=== PATIENT | female | born 1985 | race Caucasian/White ===

== ENCOUNTER 2016-08-16 10:23 | Emergency (ER) | payer OTHER ==
[~2016-08-16] VITALS: Ht 160 cm; Wt 54.8 kg
[~2016-08-16 10:23] MED LIST: ULTRAM50 MG PO; ZANTAC300 MG PO
[2016-08-16 10:42] VITALS: BP 108/71
[2016-08-16] MEDS ORDERED: CORTISPORI200 DROPS/ RIGHT EAR (11:14)
[2016-08-16] MEDS ORDERED: AZITHROMYCIN250 MG1 PO (11:14)
[2016-08-16] MEDS ORDERED: PAROXETINE HCL10 MG PO (11:15)
[2016-08-16] MEDS ORDERED: TYLENOL WITH C1 EACH PO (11:26)
[2016-08-16] MEDS ORDERED: CIPRO500 MG PO (11:26)
== END 2016-08-16 11:32 | disposition home or self-care (01) ==
LOC: EME 10:23
DX: H66.91 Otitis media, unspecified, right ear (principal)
CPT/HCPCS: 99281; 99283